=== PATIENT | male | born 1970 | race American Indian/Alaskan Native ===

== ENCOUNTER 2019-01-09 22:42 | Emergency (ER) | payer MEDICARE ==
[2019-01-09] MEDS ORDERED: SODIUM CHLORIDE 0.9% 1000 ML 1,000 ML IV ONE ×2 (23:34→23:50)
[2019-01-09] MEDS ORDERED: ONDANSETRON 4 MG/2 ML INJ IV ONE (23:50)
--- NOTE | 2019-01-09 23:57 | Emergency Department Report ---
- General Chief complaint: Weakness Stated complaint: WEAKNESS Time Seen by Provider: 01/09/19 23:34 Source: patient Mode of arrival: Stretcher Limitations: No Limitations - History of Present Illness Initial comments: Mr. Lafleur is a 48 yo male with hx of IDDM who presents with generalized weakness. He was been without diabetes medication Tresiba for several days. He is followed by the [place] physician Dr. Young. He has nausea. He arrived per EMS. Denies pain . Denies discomfort. No chest pain, back pain, abdominal pain, or syncope. "I will feel a whole lot better once I get my medication." He is [employer] . 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 He is currently unemployed. He was told at one time that he had elevated blood pressure. However he has never taken antihypertensive medicine. MD Complaint: generalized weakness -: Gradual, days(s) (2-3) Location: generalized Severity: moderate Quality: aching Improves with: none Worsens with: none Context: other (has not taking his long-acting insulin in several days) Associated Symptoms: denies other symptoms - Related Data Previous Rx's Medication Instructions Recorded Last Taken Type Insulin Degludec [Tresiba] 4 unit SQ DAILY #1 vial 01/10/19 Unknown Rx Allergies Allergy/AdvReac Type Severity Reaction Status Date / Time No Known Allergies Allergy Verified 01/09/19 23:10 ED Review of Systems ROS: Stated complaint: WEAKNESS Other details as noted in HPI Comment: All other systems reviewed and negative Constitutional: malaise Respiratory: denies: cough, shortness of breath Cardiovascular: denies: chest pain Gastrointestinal: nausea. denies: abdominal pain Neurological: denies: headache ED Past Medical Hx - Past Medical History Previous Medical History?: Yes Hx Diabetes: Yes - Surgical History Past Surgical History?: No - Social History Smoking Status: Never Smoker Substance Use Type: None - Medications Home Medications: Home Medications Medication Instructions Recorded Confirmed Last Taken Type Insulin Degludec [Tresiba] 4 unit SQ DAILY #1 vial 01/10/19 Unknown Rx ED Physical Exam - General Limitations: No Limitations General appearance: alert, in no apparent distress - Head Head exam: Present: atraumatic, normocephalic - Eye Eye exam: Present: normal appearance - ENT ENT exam: Present: mucous membranes dry - Neck Neck exam: Present: normal inspection, full ROM - Respiratory Respiratory exam: Present: normal lung sounds bilaterally. Absent: respiratory distress, wheezes, rales, stridor - Cardiovascular Cardiovascular Exam: Present: regular rate, normal rhythm, normal heart sounds. Absent: systolic murmur, diastolic murmur, rubs, gallop - GI/Abdominal GI/Abdominal exam: Present: soft, normal bowel sounds. Absent: distended, tenderness, guarding, rebound - Rectal Rectal exam: Present: deferred - Extremities Exam Extremities exam: Present: normal inspection - Neurological Exam Neurological exam: Present: alert, oriented X3 - Psychiatric Psychiatric exam: Present: normal affect, normal mood - Skin Skin exam: Present: warm, dry, intact, normal color. Absent: rash ED Course Vital Signs 01/09/19 23:11 Temperature 97.8 F Pulse Rate 77 Respiratory 16 Rate Blood Pressure 188/115 O2 Sat by Pulse 99 Oximetry ED Medical Decision Making - Lab Data Result diagrams: 01/09/19 23:38 01/09/19 23:38 - Medical Decision Making Mr. Mott presents with generalized weakness. Appeared dehydrated on physical exam confirmed by prerenal LIANNE. He received IV fluid therapy. He also received IV antiemetic. No evidence of diabetic ketoacidosis on labs obtained. I prescribed Tresiba I was referred to his primary physician. Critical care attestation.: If time is entered above; I have spent that time in minutes in the direct care of this critically ill patient, excluding procedure time. ED Disposition Clinical Impression: Acute hyperglycemia, Prerenal acute renal failure Disposition: DC-01 TO HOME OR SELFCARE Is pt being admited?: No Does the pt Need Aspirin: No Condition: Stable Instructions: Chronic Kidney Disease (ED), Dehydration (ED) Prescriptions: Insulin Degludec [Tresiba] 4 unit SQ DAILY #1 vial Referrals: PRIMARY CARE, [Referring] - 3-5 Days
[2019-01-10 00:02] LABS: Basophils % (Auto) 0.4 % (0.0-1.8); Eosinophils # (Auto) 0.2 K/mm3 (0.0-0.4); Eosinophils % (Auto) 1.8 % (0.0-4.3); Hematocrit 39.8 % (35.5-45.6); Hemoglobin 13.6 gm/dl (11.8-15.2); Lymphocytes # (Auto) 1.8 K/mm3 (1.2-5.4); Lymphocytes % (Auto) 15.9 % (13.4-35.0); Mean Corpuscular HGB Conc 34 % (32-34); Mean Corpuscular Volume 87 fl (84-94); Monocytes # (Auto) 0.4 K/mm3 (0.0-0.8); Monocytes % (Auto) 3.7 % (0.0-7.3); Platelet Count 270 K/mm3 (140-440); Red Blood Count 4.57 M/mm3 (3.65-5.03); Red Cell Distribution Width 14.2 % (13.2-15.2)
[2019-01-10 00:32] LABS: Calcium 9.1 mg/dL (8.4-10.2)
[2019-01-10 01:52] VITALS: BP 233/127
== END 2019-01-10 02:34 | disposition home or self-care (01) ==
LOC: ED 22:42
DX: E11.65 Type 2 diabetes mellitus with hyperglycemia (principal); N17.9 Acute kidney failure, unspecified
CPT/HCPCS: 36415; 80048; 82962; 85025; 96361; 96374; 99284; J2405; J7030